=== PATIENT | female | born 1950 | race Caucasian/White ===

== ENCOUNTER 2016-09-04 10:27 | Emergency (ER) | payer OTHER, MEDICARE ==
[~2016-09-04] VITALS: Ht 167.6 cm; Wt 63.1 kg
[2016-09-04 10:35] VITALS: BP 134/67; PULSE 76; RESP 18; TEMP 98.1; O2SAT 97
[2016-09-04] MEDS ORDERED: ATOR20TA15 PO (11:04)
[2016-09-04] MEDS ORDERED: LISI2.5T3 PO (11:05)
--- NOTE | 2016-09-04 11:09 | PD ---
HPI Chief Complaint: Musculoskeletal Complaint Time Seen by Provider: 11:06 Travel History International Travel<30 days: No Contact w/Intl Traveler<30days: No Traveled to known affect area: No History of Present Illness HPI 66-year-old female presents the emergency department with a workplace injury to the right knee and left foot. 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 Patient has an abrasion to the right anterior knee with localized pain and swelling. She also has pain swelling to the left distal dorsal lateral foot. There is no open wound on the foot. Pain seems to be worse in the left foot and has a 4/10. This is worse with ambulation. Knee is a 3/10 on the pain scale. Patient states no other significant pain or injury. Her tetanus is over 10 years old. She has no known drug allergies. PFSH Past Medical History Hypertension: Yes Tetanus Vaccination: > 5 Years Influenza Vaccination: No ?: Not Past Surgical History Hysterectomy: Yes Social History Alcohol Use: Yes (WINE DAILY) Tobacco Use: Yes (1/2PPD) Substance Use: No Allergies-Medications (Allergen,Severity, Reaction): Coded Allergies: No Known Allergies (Unverified , 09/04/16) Reported Meds & Prescriptions Reported Meds & Active Scripts Active Reported Lisinopril 2.5 Mg Tab Unknown Dose PO BID Atorvastatin (Atorvastatin Calcium) 20 Mg Tab 20 Mg PO HS Review of Systems Except as stated in HPI: all other systems reviewed are Neg General / Constitutional: No: Fever Eyes: No: Visual changes HENT: No: Headaches Cardiovascular: No: Chest Pain or Discomfort Respiratory: No: Shortness of Breath Gastrointestinal: No: Abdominal Pain Genitourinary: No: Dysuria Musculoskeletal: No: Pain Skin: No Rash Neurologic: No: Weakness Psychiatric: No: Depression Endocrine: No: Polydipsia Hematologic/Lymphatic: No: Easy Bruising Physical Exam Narrative GENERAL: Patient appears in acute distress. SKIN: Warm and dry. Normal color. Normal turgor. Patient's superficial abrasion to the right anterior knee over the patella with localized swelling. Left foot shows small amount of ecchymosis over the distal lateral dorsal foot without significant swelling. HEAD: Atraumatic. Normocephalic. EYES: Pupils equal and round. No scleral icterus. No injection or drainage. ENT: No nasal bleeding or discharge. Mucous membranes pink and moist. No dental injuries. Airway is patent. NECK: Trachea midline. No JVD. Neck is supple. No bony tenderness or step-off. CARDIOVASCULAR: Regular rate and rhythm. RESPIRATORY: No accessory muscle use. Clear to auscultation. Breath sounds equal bilaterally. MUSCULOSKELETAL: Extremities without clubbing, cyanosis, or edema. No obvious deformities. Patient has effusion to the right knee without significant laxity. There is no point tenderness along the joint lines of the right knee. There is no increased pain with varus or valgus stress of the right knee. Flexion is somewhat reduced secondary to swelling in the right knee joint. Left foot has no significant swelling has area of ecchymosis and tenderness along the distal fourth metatarsal, otherwise no significant findings. NEUROLOGICAL: Awake and alert. No obvious cranial nerve deficits. Motor grossly within normal limits. Five out of 5 muscle strength in the arms and legs. Normal speech. PSYCHIATRIC: Appropriate mood and affect; insight and judgment normal. Data Data Last Documented VS Vital Signs Date Time Temp Pulse Resp B/P Pulse Ox O2 Delivery O2 Flow Rate FiO2 09/04/16 10:35 98.1 76 18 134/67 97 Orders Foot, Complete ([id number]) (09/04/16 11:09) Knee, Complete (4vws) (09/04/16 11:09) Ice/Cold Pack (09/04/16 11:09) Tetanus/Diphtheria Tox Adult (Tetanus/Di (09/04/16 11:15) Splint Or Brace Apply/Monitor (09/04/16 11:49) Splint Or Brace Apply/Monitor (09/04/16 11:49) MDM Medical Decision Making Medical Screen Exam Complete: Yes Emergency Medical Condition: Yes Differential Diagnosis Workplace injury. Fall. Left foot contusion. Left foot fracture. Right knee contusion. Right knee abrasion. Right knee effusion. Possible fracture. Narrative Course Patient is medically stable at time of exam. Ice pack is applied to both areas of injury. X-ray of the right knee and left foot ordered. Right knee x-ray shows effusion but otherwise no acute process per radiologist. Left foot suggests a fracture of the distal left fourth metatarsal, and a previous pain is noted which patient states was from a previous surgery "years ago". Knee immobilizer was placed on the right knee. Postop shoe is placed on the left foot. Patient is offered crutches, but refused. Patient is given ibuprofen 600 mg 4 times a day #40. Patient is given Tylenol 500 mg 2 tabs every 6 hours when necessary #60. Keflex 500 mg 3 times a day 7 days. Patient is to follow with a digital business analyst for her left foot. Worker's comp form is completed with restrictions.. Diagnosis Primary Impression: Accident at workplace Additional Impressions: Contusion of knee, right Abrasion, right knee, initial encounter Metatarsal fracture Qualified Code: S92.345A - Closed nondisplaced fracture of fourth metatarsal bone of left foot, initial encounter Patient Instructions: Abrasion (ED), Contusion in Adults (ED), Foot Fracture in Adults (ED), General Instructions Med/Other Pt SpecificInfo: Prescription(s) given Disposition: 01 DISCHARGE HOME Condition: Stable Chan Parker Sep 04, 2016 11:09
[2016-09-04] MEDS ORDERED: TETANUS/DIPHTHERIA TOXOID ADULT 0.5 ML VIAL IM ONE (11:15)
--- NOTE | 2016-09-04 11:59 | RADHPO ---
EXAM DATE/TIME: 09/04/2016 11:24 [facility] COMPARISON: No previous studies available for comparison. INDICATIONS : Left foot pain after fall today at work. MEDICAL HISTORY : None. SURGICAL HISTORY : Surgery for pinched nerve. ENCOUNTER: Initial ACUITY: 1 day PAIN SCORE: 6/10 LOCATION: Left lateral foot FINDINGS: Three view examination of the left foot demonstrates fracture of the head of the fourth metatarsal of indeterminate age. Scattered degenerative changes. There is a 2 cm foreign body adjacent to the dist al second metatarsal. CONCLUSION: 1. Fracture fourth metatarsal head of indeterminate age. 2. 2 cm linear foreign body adjacent to the distal second metatarsal. Live Diamond MD on September 04, 2016 at 11:56 Board Certified Radiologist. This report was verified electronically.
--- NOTE | 2016-09-04 12:00 | RADHPO ---
EXAM DATE/TIME: 09/04/2016 11:28 [facility] COMPARISON: No previous studies available for comparison. INDICATIONS : Right knee pain from fall today at work. MEDICAL HISTORY : None. SURGICAL HISTORY : None. ENCOUNTER: Initial ACUITY: 1 day PAIN SCORE: 6/10 LOCATION: Right anterior knee FINDINGS: Four view examination of the right knee demonstrates no evidence of fracture or dislocation. Bony mi neralization is normal. Soft tissue swelling. The articular surfaces are intact. The suprapatellar soft tissues have a normal configuration. CONCLUSION: Soft tissue swelling without fracture. Live Diamond MD on September 04, 2016 at 11:58 Board Certified Radiologist. This report was verified electronically.
[2016-09-04] MEDS ORDERED: IBUP-232 PO (12:11)
[2016-09-04] MEDS ORDERED: CEPH-460 PO (12:11)
[2016-09-04] MEDS ORDERED: EXTR500C PO (12:11)
== END 2016-09-04 12:19 | disposition home or self-care (01) ==
LOC: PHED 10:27 → PHEFT 12:19
DX: S80.01XA Contusion of right knee, initial encounter (principal); S80.211A Abrasion, right knee, initial encounter; S92.354A Nondisplaced fracture of fifth metatarsal bone, right foot, initial encounter for closed fracture; Z23 Encounter for immunization; W18.09XA Striking against other object with subsequent fall, initial encounter; Y93.89 Activity, other specified; Y92.89 Other specified places as the place of occurrence of the external cause; Y99.0 Civilian activity done for income or pay
CPT/HCPCS: 73564; 73630; 90471; 90714; 99284; L1830; L3260